=== PATIENT | female | born 1970 | race Caucasian/White ===

== ENCOUNTER 2023-11-20 08:14 | Outpatient (REF) | payer BC, SELFPAY ==
[2023-11-20 08:27] LABS: MANUAL DIFF FLAG NO
[2023-11-20 08:49] LABS: Basophils Absolute Auto 0.1 X10*3/uL (0.0-0.2); Basophils Percent Auto 0.9 % (0-2); Eosinophils Absolute Auto 0.3 X10*3/uL (0.0-0.4); Eosinophils Percent Auto 5.1 % (0-4); Hematocrit 41.1 % (37.0-47.0); Hemoglobin 14.2 g/dl (12.0-16.0); Imm Gran Abs Auto 0.02 X10*3/uL (0.00-0.03); Imm Gran Pct Auto 0.4 % (0.0-0.4); Lymphocytes Percent Auto 36.9 % (20-40); Mean Corpuscular HGB Conc 34.5 g/dl (31.0-35.0); Mean Corpuscular Hemoglobin 29.1 pg (27.0-33.0); Mean Corpuscular Volume 84.2 fL (80.0-98.0); Mean Platelet Volume 8.8 fL (9.4-12.3); Monocytes Absolute Auto 0.3 X10*3/uL (0.1-1.2); Monocytes Percent Auto 5.9 % (2-11); Neutrophils Absolute Auto 2.7 x10*3/uL (2.0-8.3); Neutrophils Percent Auto 50.8 % (45-73); Platelet Count 313 X10*3/uL (160-400); Red Blood Count 4.88 X10*6/uL (4.20-5.50); Red Cell Distribution Width 12.9 % (11.0-16.0); White Blood Count 5.3 X10*3/uL (4.8-10.8)
[2023-11-20 08:55] LABS: Estimated Average Glucose 88 mg/dL; Hemoglobin A1c % 4.7 % (<6.0)
[2023-11-20 09:25] LABS: Alanine Aminotransferase 29 U/L (0-31); Albumin Level 4.3 g/dL (3.5-5.0); Alkaline Phosphatase 92 U/L (39-117); Anion Gap 13 (12-20); Aspartate Amino Transferase 18 U/L (5-31); Bilirubin Total 0.4 mg/dL (0.0-1.0); Blood Urea Nitrogen 11 mg/dL (9-16); Calcium 9.4 mg/dL (8.4-10.2); Carbon Dioxide 23 mmol/L (22-29); Chloride 110 mmol/L (96-108); Cholesterol 190 mg/dL (<200); Estimated Glomerular Filt Rate > 60; Glucose Fasting 110 mg/dL (60-99); HDL Cholesterol 47 mg/dL (>40); LDL Cholesterol Calculated 117 mg/dL (<100); Magnesium 2.1 mg/dL (1.6-2.6); Potassium 3.4 mmol/L (3.3-5.1); Sodium 143 mmol/L (135-145); Triglycerides 132 mg/dL (<150)
[2023-11-20 10:14] LABS: Free T4 (Free Thyroxine) 0.98 ng/dL (0.71-1.85); Thyroid Stimulating Hormone 4.72 uIU/mL (0.32-4.0); Vitamin D 25-OH Total 39.5 ng/mL (>30)
[2023-11-20 10:19] LABS: Vitamin B12 1525 pg/mL (200-900)
[2023-11-21 07:13] LABS: Triiodothyronine T3 Free 2.8 pg/mL (2.3-4.2); Triiodothyronine T3 Total 85 ng/dL (76-181)
== END 2023-11-20 08:15 | disposition home or self-care (01) ==
LOC: HO.LAB 08:14
PROVIDERS: PCP Nurse Practitioner Family; Visit Provider Psychiatry & Neurology Psychiatry
DX: F39 Unspecified mood [affective] disorder (principal)
CPT/HCPCS: 36415; 80053; 80061; 82306; 82607; 83036; 83735; 84439; 84443; 84480; 84481; 85025

== ENCOUNTER → 2023-11-29 10:00 | Outpatient (BNV) | payer BC, SELFPAY | PROVIDERS: Visit Provider Psychiatry & Neurology Psychiatry | DX: F33.41 Major depressive disorder, recurrent, in partial remission (principal); F41.3 Other mixed anxiety disorders; R41.844 Frontal lobe and executive function deficit; R41.840 Attention and concentration deficit | CPT/HCPCS: 90792; 99213; 99499 ==

== ENCOUNTER 2023-12-05 08:30 | Outpatient (RCR) | payer BC, SELFPAY ==
[2023-11-19 11:49] VITALS: BP 110/78; PULSE 76; TEMP 36.6
[2023-11-19 11:51] VITALS: BMI 30.1
--- NOTE | 2023-11-19 12:51 | PC.ADMIT ---
Patient is a 53 year old female who was referred to PHP by her prescriber d/t increased depression and anxiety sxs. Patient reports many losses with in the past few years including the loss of her , father, sister, and recently a friend. She reports she currently is feeling numb. She also has had some lifestyle changes including moving out of her house where she was living and where her in-laws were living and changing jobs after 34 years. She reports she moved to an apartment that she is renting in [place] as she has many friends who live there who are supportive. Patient is alert and oriented x4. Calm and cooperative. Presented with depressed mood and anxious affect. Denied SI. Reports isolating and not wanting to leave her house. She is on a leave of absence from her job to work on her mental health. Reports ruminating about her situation throughout the day and is having difficulty sleeping. Reviewed medications with patient. She reports taking them as prescribed.
--- NOTE | 2023-11-19 21:56 | HO.PS.ADMBH ---
HPI Date of Service: 11/19/23 Chief Complaint: anxiety,depression Sources of Information: patient interviewed, chart reviewed and crisis/core team assessment reviewed HPI Narrative: This is the first [facility] admission for this 53 year old employed, , female with history of outpatient treatment for depression, anxiety who was referred to [facility] by her provider for worsening depression and anxiety. She reports significant impairment in functioning which has been notably problematic over the past year and she feels is jeopardizing her ability to work, which further contributes to worsening anxiety and mood. She describes executive dysfunction I cant keep myself straight . She has been at her current job for 8 months and is experiencing a lot of anxiety with managing the work I'm not sure I can do it anymore . Prior to this she had worked in a job for 34 years, but walked away after feeling she was no longer needed anymore maybe that wasn't a good idea . She had been struggling to keep up and on retrospect wonders if she had taken on too much . She has been struggling with decision-making, prioritizing, critical thinking and organization. She feels she used to be able to manage these things, and even when her depression and anxiety have become increasingly problematic, she was still able to manage, that is up until this past year. She notes the decline in functioning has been obvious and contributed to a clear worsening in her anxiety and depression. She relays attention issues and can even get confused. Has been more prone to making careless errors or stating inaccuracies (not intentionally) like saying it's Saturday (believing it is Sat) when it is in fact . She has been on current medication regime Cymbalta and Wellbutrin (as well as Ambien and lorazepam) for many years which had always been helpful. She had previously been on and off Rexulti for emergence of acute emotional dysregulation/agitation for past few years which had initially been helpful but loss effectiveness over time. A few months ago was switched to Abilify which helps keeps me calm . She notes however it does not help her functioning and as a result her depression and anxiety persist. Attention problems go back to 2014 when she was trying to manage 8 new stores my brain cracked . She notes another acute decline this past year, with no apparent precipitant aside from grief from recent losses, which she had undergone trauma therapy for and thought this was helpful. She reports her mind is constantly ruminating on stupid things often various unrelated or insignificant things, as well as things of greater importance that she is concerned about. On ROS, endorses fatigue, she has not had a period in over 20 years on account of being on an IUD and is not sure if she has gone through menopause. Past Psychiatric History: Denies IP hospitalizations, PHP or detox admissions Denies hx of suicide attempts, suicidal behaviors or SIB Hx of outpatient providers, previously in trauma therapy Current treaters: psych provider - Blaire Mcrae APRN therapist - Francisco Javier Schrader [facility] CURRENT MEDICATIONS Cymbalta 60 mg qd Wellbutrin XL 300 mg qAM Abilify 5 mg qd lorazepam 1 mg BID Ambien 12.5 mg qhs IUD/Mirena [facility] Medical History (Updated 11/21/23 @ 10:08 by Eva Brown MD) Migraine Sleep apnea Asthma Hypothyroid Narrative: LMP: 20 years ago (on IUD) unclear if perimenopausal/post-menopausal Ht: 5'5 Wt: ~180 lbs Family History: Adult children both diagnosed and treated for ADHD as adults (rxed Ritalin and Adderall XR respectively) Father who was a war vet, struggled with issues related to PTSD Social History: , has 2 adult children whom she maintains contact with and who live in the area and are her main supports Lives alone, rents an apartment Employed in , does payroll Obtained a Masters degree ([employer]) Substance History: Alcohol use: occasional/seldom, in moderation or on special occasions, many years. Denies abuse hx, last used past week Cannabis use: occasional, many years. last use in past week Denies nicotine or other substance use Caffeine use 0-2 a day or less Trauma History: Reports grief related to losses - loss of mother in 2008, loss of father 2 years ago and loss of sister last year. Loss of 5 years ago. He had been sick, but adds that their relationship wasn't the greatest and there is unresolved emotional conflicts Diagnostics Vital Signs (24Hr): Vital Signs - 24 hr 11/19/23 11:49 Temperature 97.8 F Pulse Rate 76 Blood Pressure 110/78 BMI result Body Mass Index 30.1 Meds/Allergies Meds Home Medications Medication Instructions Recorded Confirmed Type aripiprazole 5 mg tablet 5 mg PO BEDTIME 11/19/23 11/19/23 History bupropion HCl 300 mg 24 hr tablet, 300 mg PO DAILY 11/19/23 11/19/23 History extended release cetirizine 10 mg tablet (Zyrtec) 10 mg PO DAILY PRN seasonal 11/19/23 11/19/23 History allergies duloxetine 60 mg capsule,delayed 60 mg PO DAILY 11/19/23 11/19/23 History release (Cymbalta) levothyroxine 88 mcg capsule 88 mcg PO DAILY 11/19/23 11/19/23 History lorazepam 1 mg tablet 1 mg BID 11/19/23 11/19/23 History montelukast 10 mg tablet 10 mg PO DAILY 11/19/23 11/19/23 History topiramate 50 mg tablet 100 mg PO BEDTIME 11/19/23 11/19/23 History zolmitriptan 5 mg tablet See Rx Instructions .Route .COMPLEX 11/19/23 11/19/23 History zolpidem 12.5 mg tablet,extended 12.5 mg PO BEDTIME 11/19/23 11/19/23 History release,multiphase Allergies Allergies Allergy/AdvReac Type Severity Reaction Status Date / Time aspirin [ASA] Allergy Anaphylaxis Verified 11/19/23 11:45 environmental allergies Allergy Difficulty Verified 11/19/23 11:43 Breathing ibuprofen [From Motrin] Allergy Anaphylaxis Verified 11/19/23 11:45 fruit Allergy itchy Uncoded 11/19/23 12:52 throat, lips swell Mental Status Exam Mental Status Exam Narrative: Alert, oriented, in no acute distress. Calm, cooperative, engaged. No psychomotor agitation or neurovegetative retardation. Eye contact maintained. Mood sad depressed, affect constricted. Speech normal. Thought process linear, coherent. Thought content related to stressors, transient hopelessness, denies SI or HI. No paranoia or delusional content elicited. No evidence of psychosis. Insight and judgment impaired. Assessment & Plan Assessment & Plan (1) Major depressive disorder, recurrent episode with anxious distress: Status: Acute Code(s): F33.9 - Major depressive disorder, recurrent, unspecified Assessment and Plan: in partial or unspecified remission r/o other mood disorders (2) Other mixed anxiety disorders: Status: Acute Code(s): F41.3 - Other mixed anxiety disorders Assessment and Plan: generalized anxiety, somatic anxiety (3) Impaired executive functioning: Status: Acute Code(s): R41.844 - Frontal lobe and executive function deficit (4) Attention and concentration deficit: Status: Acute Code(s): R41.840 - Attention and concentration deficit Plan Admit to [facility] continue with regular medications does not need any refills at this time will check routine lab work including TFTs continue to monitor as per protocol Patient educated on: diagnosis and medication risk/benefits Informed Consent: understands Reason for continued partial hosp. stay Substantial Risk for: inability to function and med/psych decompensation Certification I certify that partial hospital treatment is medically necessary due to the symptoms and problems resulting from the patient's mental illness and the failure to treat the patient at the partial hospital level of care would likely result in the patient requiring inpatient psychiatric care which could not be prevented at a less intensive level of care. Time Spent With Patient Time: Total time managing care of this patient today __60__ minutes.
--- NOTE | 2023-11-21 17:19 | HO.PHP ---
Pt's case has been opened and reviewed in team.
--- NOTE | 2023-11-27 09:53 | HO.PHP ---
Late Entry: PHP staff member contacted Yudelka from [facility] to gather appointment times for Darling. Darling's next scheduled appointment for OP services is December 03, 2023 at 10 AM with Jeannie Horton at the [address] [place] [address] location.
--- NOTE | 2023-11-29 21:50 | HO.PHPPROGNO ---
Subjective Subjective Date of Service: 11/29/23 Reason For Visit: anxiety,depression Interim History: Patient seen for follow-up. She reports her mood as just neutral . She reports still having a lot of apprehension about work, not sure how she is going to function at work, still struggling with attention, focus, organization, and productivity. She notes that she has loved coming to the program and has found the information helpful in some ways, mostly around managing stress, but limiting in scope because her problems with executive dysfunction are not amenable to strategies for managing stress and anxiety. She reports her anxiety directly correlates to work My anxiety has skyrocketed since this job . She reports feeling physically ill at the thought of returning to work. She hands me [employer] paperwork that she needs filled out for work. She says this is the first week she has even been able to manage comprehending the paperwork, prior to this week it was just jibberish and just was unable to focus on it long enough to get it printed out and handed to me. She feels her medications are doing what they should be doing, and sa per our initial discussion, she would like to try medication to help with focus/attention. She remembered to bring the names and doses of the ADHD medications bother her children are on (both carry diagnoses for ADHD). Her children are noted to be on short acting stimulants, one on amphetamine family, the other on methylphenidate. I would prefer to start patient on a long-acting medication and after checking her pharmacy to see which long acting stimulant were in stock, my preference would be to starting on Vyvanse, which patient was agreeable with. WIll also start on guanfacine in the afternoon to manage any anxiety and help with anxiety and scattered thoughts in the evening, when taking stimulant would not be practical. She is also on Wellbutrin so I advise her to be sure to eat breakfast and to avoid any caffeine while starting on a stimulant, especially because she is already on a stimulating antidepressant. We can adjust the guanfacine or move to BID dosing if warranted. Medication Compliance: Yes Side effects from medications: No Attending Groups: Yes Review of Systems Acute medical concerns: No Mental Status Exam Mental Status Exam Narrative: Alert, oriented, in no acute distress. Calm, cooperative, engaged. No psychomotor agitation or neurovegetative retardation. Eye contact maintained. Mood anxious, affect anxious. Speech normal. Thought process linear, coherent. Thought content related to stressors, transient hopelessness, denies SI or HI. No paranoia or delusional content elicited. No evidence of psychosis. Insight and judgment impaired. Diagnostics Vital Signs (24Hr): BMI result Body Mass Index 30.1 Assessment & Plan Assessment & Plan (1) Major depressive disorder, recurrent episode with anxious distress: Status: Acute Code(s): F33.9 - Major depressive disorder, recurrent, unspecified (2) Other mixed anxiety disorders: Status: Acute Code(s): F41.3 - Other mixed anxiety disorders (3) Impaired executive functioning: Status: Acute Code(s): R41.844 - Frontal lobe and executive function deficit (4) Attention and concentration deficit: Status: Acute Code(s): R41.840 - Attention and concentration deficit Plan start Vyvanse 10 mg qAM start guanfacine ER 1 mg daily in afternoon continue other regular medications continue to monitor Patient educated on: diagnosis and medication risk/benefits Informed Consent: understands Reason for contiued partial hosp. stay Substantial Risk for: inability to function and med/psych decompensation Certification I certify that partial hospital treatment is medically necessary due to the symptoms and problems resulting from the patient's mental illness and the failure to treat the patient at the partial hospital level of care would likely result in the patient requiring inpatient psychiatric care which could not be prevented at a less intensive level of care. Total time managing care of this patient today __30__ minutes. Discharge Plan Discharge Attending provider: Eva Brown Additional Instructions: Darling's next scheduled appointment for OP services is December 03, 2023 at 10 AM with Jeannie Horton at the [address] [place] [address] location. Medications: New lisdexamfetamine 10 mg capsule 10 mg PO QAM Qty: 30 0RF Rx Instructions: Partial Fill upon patient request. guanfacine 1 mg tablet extended release 24 hr 1 mg PO DAILY Qty: 20 0RF No Action cetirizine [Zyrtec] 10 mg Tablet 10 mg PO DAILY PRN (Reason: seasonal allergies) zolmitriptan 5 mg tablet See Rx Instructions .ROUTE .COMPLEX Rx Instructions: Take one tab at onset of migraine. May repeat in 2 hours if ineffective. montelukast 10 mg tablet 10 mg PO DAILY lorazepam 1 mg tablet 1 mg BID aripiprazole 5 mg tablet 5 mg PO BEDTIME bupropion HCl 300 mg tablet extended release 24 hr 300 mg PO DAILY topiramate 50 mg tablet 100 mg PO BEDTIME duloxetine [Cymbalta] 60 mg Capsule,Delayed Release(Dr/Ec) 60 mg PO DAILY zolpidem 12.5 mg tablet,ext release multiphase 12.5 mg PO BEDTIME levothyroxine 88 mcg Capsule 88 mcg PO DAILY Stand Alone Forms: Patient Portal Discharge page
--- NOTE | 2023-12-02 19:28 | P.PNPSP_ITS ---
Subjective Subjective Date of Service: 12/02/23 Reason For Visit: anxiety,depression Interim History: Reportedly Vyvanse was out of stock (even though we had called pharmacy just shortly before to verify stock). She is hoping that it will be available this afternoon for pick-up. Otherwise reports an uneventful weekend. She started on guanfacine in the late afternoon, noted developing a migraine headache in the evenings Sat and Sat, she was not sure if this was related, but did notice as well some lightheadedness upon standing on Saturday (as we had discuss) and presumed that the drop in BP might be contributing to headaches. She takes a migraine prophylaxis at night. She had no further issues yesterday so she is hopeful that she is adjusting to the medication. Mood today is okay . She denies any SI. She expresses gratitude toward [facility] staff for extending her stay until this coming Saturday. Medication Compliance: Yes Side effects from medications: No Attending Groups: Yes Review of Systems Acute medical concerns: No Mental Status Exam Mental Status Exam Narrative: Alert, oriented, in no acute distress. Calm, cooperative, engaged. No psychomotor agitation or neurovegetative retardation. Eye contact maintained. Mood anxious, affect anxious. Speech normal. Thought process linear, coherent. Thought content related to stressors, transient hopelessness, denies SI or HI. No paranoia or delusional content elicited. No evidence of psychosis. Insight and judgment impaired. Diagnostics Vital Signs (24Hr): BMI result Body Mass Index 30.1 Assessment & Plan Assessment & Plan (1) Major depressive disorder, recurrent episode, in partial remission with anxious distress: Status: Acute Code(s): F33.41 - Major depressive disorder, recurrent, in partial remission (2) Other mixed anxiety disorders: Status: Acute Code(s): F41.3 - Other mixed anxiety disorders (3) Impaired executive functioning: Status: Acute Code(s): R41.844 - Frontal lobe and executive function deficit (4) Attention and concentration deficit: Status: Acute Code(s): R41.840 - Attention and concentration deficit Plan start Vyvanse 10 mg qAM continue guanfacine ER 1 mg daily in afternoon continue other regular medications continue to monitor Telehealth Location of provider rendering services: other (private office) Location of patient: other ([facility]) Patient Identification confirmed using: Name, : Yes Telehealth method: video Patient verbally consented to treatment: Yes Minutes spent on Phone/Video with Pt.: 30 Patient educated on: diagnosis and medication risk/benefits Informed Consent: understands Reason for contiued partial hosp. stay Substantial Risk for: inability to function, rapid decompensation and med/psych decompensation Certification I certify that partial hospital treatment is medically necessary due to the symptoms and problems resulting from the patient's mental illness and the failure to treat the patient at the partial hospital level of care would likely result in the patient requiring inpatient psychiatric care which could not be prevented at a less intensive level of care. Total time managing care of this patient today __30__ minutes. Discharge Plan Discharge Attending provider: Eva Brown Additional Instructions: Darling's next scheduled appointment for OP services is December 03, 2023 at 10 AM with Jeannie Horton at the [address] [place] [address] location. Medications: New lisdexamfetamine 10 mg capsule 10 mg PO QAM Qty: 30 0RF Rx Instructions: Partial Fill upon patient request. guanfacine 1 mg tablet extended release 24 hr 1 mg PO DAILY Qty: 20 0RF No Action cetirizine [Zyrtec] 10 mg Tablet 10 mg PO DAILY PRN (Reason: seasonal allergies) zolmitriptan 5 mg tablet See Rx Instructions .ROUTE .COMPLEX Rx Instructions: Take one tab at onset of migraine. May repeat in 2 hours if ineffective. montelukast 10 mg tablet 10 mg PO DAILY lorazepam 1 mg tablet 1 mg BID aripiprazole 5 mg tablet 5 mg PO BEDTIME bupropion HCl 300 mg tablet extended release 24 hr 300 mg PO DAILY topiramate 50 mg tablet 100 mg PO BEDTIME duloxetine [Cymbalta] 60 mg Capsule,Delayed Release(Dr/Ec) 60 mg PO DAILY zolpidem 12.5 mg tablet,ext release multiphase 12.5 mg PO BEDTIME levothyroxine 88 mcg Capsule 88 mcg PO DAILY Stand Alone Forms: Patient Portal Discharge page
--- NOTE | 2023-12-05 17:31 | HO.PHPPROGNO ---
Subjective Subjective Date of Service: 12/05/23 Reason For Visit: anxiety,depression Interim History: Patient seen for follow-up, she has completed the program and will be discharged at the end of the day today. She reports feeling good she appears more relaxed and is finding the guanfacine to be very helpful now. She is no longer experiencing any headaches and sleep and anxiety have improved. She says she is learning to not sweat the details . She has been checking in with her pharmacy but they still do not have an Vyvanse in stock and can not tell her when it will be available. At this point, only the short acting stimulant is available consistently. We will switch her to short acting methylphenidate which I suspect will be better tolerated (vs IR amphetamine) and there is more data for use in older adults. She requests paperwork to be filled out with start date dated for next month to give her time to attend to some tasks and time to sort out stimulant use and dosage, what to expect in terms of cognitive enhancement, addressing the issues with focus/attention and executive dysfunction, and to figure out what works best in terms of dosing schedule, coordinating it with her work schedule and workload. She reports her mood is stable, denies any hopelessness or SI. No acute issues or concerns. We again reviewed behavioral strategies around optimizing treatment with stimulants including taking under ideal conditions - feeling well-rested, eat breakfast, avoid caffeine, be sure to be compliant with other medications and to eat regularly throughout the day. Maintaining good sleep hygiene, avoiding any alcohol or substance use. For now will limit to taking 3 days a week or less, (and even once she is more accustomed to the medication, generally stimulant medication works best if not taken everyday for extended amounts of time - and would be encouraged to avoid taking a couple days off per week, and avoid taking if unwell or unrested). Patient agrees with these recommendations and will discuss medication management further with outpatient provider. Medication Compliance: Yes Side effects from medications: No Attending Groups: Yes Review of Systems Acute medical concerns: No Mental Status Exam Mental Status Exam Narrative: Alert, oriented, in no acute distress. Calm, cooperative, engaged. No psychomotor agitation or neurovegetative retardation. Eye contact maintained. Mood good anxiety much better, affect brighter, more relaxed. Speech normal. Thought process linear, coherent. Thought content related to stressors, denies any hopelessness, SI or HI. No paranoia or delusional content elicited. No evidence of psychosis. Insight and judgment impaired. Diagnostics Vital Signs (24Hr): BMI result Body Mass Index 30.1 Assessment & Plan Assessment & Plan (1) Major depressive disorder, recurrent episode with anxious distress: Status: Acute Code(s): F33.9 - Major depressive disorder, recurrent, unspecified (2) Other mixed anxiety disorders: Status: Acute Code(s): F41.3 - Other mixed anxiety disorders (3) Impaired executive functioning: Status: Acute Code(s): R41.844 - Frontal lobe and executive function deficit (4) Attention and concentration deficit: Status: Acute Code(s): R41.840 - Attention and concentration deficit Plan [facility]charge from [facility] hold Mary (pharmacy unsure when will have in stock) will switch over to short acting methylphenidate 5 mg qAM to BID as directed (limit to 3 days/week or less for now until follows up with OP provider) in the meantime, patient is encouraged to reach out for any questions or concerns regarding medication or dosing continue guanfacine 1 mg qd in evening take guanfacine ER 1 mg qAM on stimulant days continue regular medications will defer further medication management to outpatient provider will complete FMLA paperwork and return to patient: Darling Stone [address] [facility] [address] [place] [address] [email or web address] [phone] Patient educated on: diagnosis, medication risk/benefits and therapeutic strategies Informed Consent: understands Certification I certify that partial hospital treatment is medically necessary due to the symptoms and problems resulting from the patient's mental illness and the failure to treat the patient at the partial hospital level of care would likely result in the patient requiring inpatient psychiatric care which could not be prevented at a less intensive level of care. Total time managing care of this patient today __30__ minutes. Discharge Plan Discharge Attending provider: Eva Brown Additional Instructions: Darling's next scheduled appointment for OP services is December 03, 2023 at 10 AM with Jeannei Horton at the [facility] location. Medications: New methylphenidate HCl [Ritalin] 5 mg tablet 5 mg PO BID Qty: 30 0RF Rx Instructions: Partial Fill upon patient request. guanfacine 1 mg tablet extended release 24 hr 1 - 2 mg PO DAILY Qty: 30 0RF Continued cetirizine [Zyrtec] 10 mg Tablet 10 mg PO DAILY PRN (Reason: seasonal allergies) zolmitriptan 5 mg tablet See Rx Instructions .ROUTE .COMPLEX Rx Instructions: Take one tab at onset of migraine. May repeat in 2 hours if ineffective. montelukast 10 mg tablet 10 mg PO DAILY lorazepam 1 mg tablet 1 mg BID aripiprazole 5 mg tablet 5 mg PO BEDTIME bupropion HCl 300 mg tablet extended release 24 hr 300 mg PO DAILY topiramate 50 mg tablet 100 mg PO BEDTIME duloxetine [Cymbalta] 60 mg Capsule,Delayed Release(Dr/Ec) 60 mg PO DAILY zolpidem 12.5 mg tablet,ext release multiphase 12.5 mg PO BEDTIME levothyroxine 88 mcg Capsule 88 mcg PO DAILY Stand Alone Forms: Patient Portal Discharge page
--- NOTE | 2023-12-17 12:06 | PM.EVENT ---
Event Note Date of Service: 12/18/23 Event Note: Reached out to patient regarding FMLA paperwork with question about next med appointment (which will be sometime in January, erum patient needed paperwork first to get an appointment) which was completed and emailed to her. The Vyvanse which had previously been on backorder, has since been made available and she picked up and started on this. Erum she did not tolerate the Ritalin which we had ordered in lieu of the Vyvanse. HOwever the Ritalin caused her to feel groggy tired and hard to focus and just slept. She is so far tolerating the Vyvanse and will plan to check in next week to see how she is doing with this. She was encouraged to reach out for any questions or concerns, and also encouraged to confirm that she has that follow up appointment set with her provider. She denies any SI, HI, AVH. No alcohol or illicit substance use. Time Spent With Patient Time: Total time managing care of this patient today _15___ minutes.
== END 2023-12-06 23:59 | disposition home or self-care (01) ==
LOC: HO.PHPA 08:30
PROVIDERS: Visit Provider Psychiatry & Neurology Psychiatry
DX: F33.41 Major depressive disorder, recurrent, in partial remission (principal); F41.3 Other mixed anxiety disorders; R41.844 Frontal lobe and executive function deficit; R41.840 Attention and concentration deficit; Z79.899 Other long term (current) drug therapy
CPT/HCPCS: 90791; 90853